=== PATIENT | male | born 1970 | race Two or more races ===

== ENCOUNTER 2025-01-13 15:20 | Emergency (ER) | payer OTHER ==
[~2025-01-13] VITALS: Ht 180.3 cm; Wt 95.3 kg
== END 2025-01-13 15:31 | disposition expired ==
LOC: ER 15:20
DX: I21.29 ST elevation (STEMI) myocardial infarction involving other sites (principal); I10 Essential (primary) hypertension; J96.00 Acute respiratory failure, unspecified whether with hypoxia or hypercapnia